=== PATIENT | male | born 1995 ===

== ENCOUNTER 2019-03-16 08:56 | Emergency (ER) | payer OTHER ==
[2019-03-16 09:20] VITALS: BMI 27.0
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
--- NOTE | 2019-03-16 11:13 | RAD ---
Date of service: 03/16/2019 PROCEDURE: Left Knee Radiographs. HISTORY: Left knee pain and swelling. COMPARISON: 01/11/2019. TECHNIQUE: 2 views obtained. FINDINGS: BONES: No acute fracture. No evidence of orthopedic hardware failure. JOINTS: Normal. No osteoarthritis. JOINT EFFUSION: New suprapatellar joint effusion. OTHER FINDINGS: None. IMPRESSION: New left suprapatellar joint effusion. No acute osseous abnormalities. No evidence of orthopedic hardware failure.
[2019-03-16] MEDS ORDERED: Oxycodone/Acetaminophen 5/325 mg Tab PO STA ×2 (11:43→15:20)
--- NOTE | 2019-03-16 15:45 | MRI ---
Date of service: 03/16/2019 PROCEDURE: MRI of the left knee without contrast HISTORY: internal derangement inability to flex COMPARISON: No prior similar study available for comparison. Patient had x-ray of the left knee on 03/16/2019 and on 01/11/2019 TECHNIQUE: Axial coronal and sagittal MRI images of the left knee were obtained P FINDINGS: The assessment is limited due to artifact from the hardware at the left tibial plateau and proximal left tibia. No definite evidence of acute fracture or dislocation. Thinning and abnormal signal in the ACL suggestive of moderate sprain and age indeterminate partial thickness tear. The assessment of the meniscus is somewhat limited in this study. No definite evidence of large meniscus tear. There is large cyst suprapatellar joint effusion with contains fat fluid level suggestive of lipohemarthrosis. The posterior cruciate ligament is intact. No definite evidence of significant tear in the quadriceps and patellar tendon. IMPRESSION: Limited assessment due to large artifact from the left tibial plateau and proximal left tibia hardware. Large joint effusion likely represent lipohemarthrosis. No definite evidence of acute fracture.
[2019-03-16 16:47] VITALS: BP 120/70; PULSE 72; RESP 20; TEMP 98.6; O2SAT 98
== END 2019-03-16 16:50 | disposition home or self-care (01) ==
LOC: H.ER 08:56
DX: M25.462 Effusion, left knee (principal)